=== PATIENT | female | born 1985 | race Caucasian/White ===

== ENCOUNTER 2018-11-16 10:25 | Emergency (ER) | payer OTHER, SELFPAY ==
[2018-11-16 10:26] VITALS: BP 154/94; PULSE 93; RESP 16; TEMP 36.1; O2SAT 96; BMI 34.9
--- NOTE | 2018-11-16 11:01 | ED.DCSUM_ITS ---
- ER Visit Summary Date of Service: 11/16/18 Chief Complaint: Possible anxiety attack History of Present Illness: The patient is a 33 F and depression no other medical history. Patient states all last week she had an anxiety attack. Today it was a cough she was fixing breakfast and felt anxious and nervous had visual change in the left eye than the right eye like she was able lose her vision and then completely resolved. He did not feel she was going to pass out. She had no other neurological symptoms. No numbness or weakness. No trouble speaking. Physical Examination: Young female no acute distress. Vital signs are stable. Afebrile. H EENT exam unremarkable. Round react to light. Extra motions are intact. Her vision is back to normal. There is no facial droop. She has normal speech. Neck nontender. Lungs clear to auscultation. Heart regular rhythm no murmur. Abdomen soft and nontender. Normal bowel sounds no peritoneal signs. Extremities moves all 4. Neurovascular intact. Equal symmetrical airconditioning engineer strength. Dorsi plantarflexion intact. Fingertip to nose and [id number] within normal limits. Neurologic exam normal. NIH score of 0. No facial droop. Normal speech. Test Results: None Emergency Department Course and Treatment: Patient's history is consistent with anxiety attack and her exam is completely normal. She is completely normal neurologic exam. Treatment Plan: Continue her depression anxiety meds. Follow-up as needed. Return if worse. Disposition: Discharge Impression: Acute anxiety attack This note was generated with [employer] dictation software. It may contain incorrect words, spelling, and punctuation that were not noted in review of the chart prior to signing ED Disposition - Plan for ED Patient: Referrals: Josefina Martin MD [Primary Care Provider] -
--- NOTE | 2018-11-16 11:03 | ED.DEP ---
ED Disposition - Plan for ED Patient: Disposition: Home or Assisted Living Instructions: Panic Attack Referrals: Josefina Martin MD [Primary Care Provider] - As Needed Additional Instructions: Follow-up with your doctor return if worse.
[2018-11-16 11:17] VITALS: RESP 15
== END 2018-11-16 11:17 | disposition home or self-care (01) ==
LOC: ED 11:10
PROVIDERS: Emergency Provider Emergency Medicine; Family Provider Pediatrics; PCP Pediatrics
DX: F41.0 Panic disorder [episodic paroxysmal anxiety] (principal); F32.9 Major depressive disorder, single episode, unspecified
CPT/HCPCS: 99283